=== PATIENT | male | born 1950 | race Caucasian/White ===

== ENCOUNTER → 2021-06-28 09:16 | Outpatient (CLI) | payer MEDICARE, OTHER, SELFPAY ==
[2021-06-28 12:33] LABS: Anion Gap 4 (5-15); BUN 17 mg/dL (7-18); BUN/Creat Ratio 12.6 RATIO (10-20); Calcium,Total 9.1 mg/dL (8.5-10.1); Chloride 108 mmol/L (98-107); Creatinine, Serum 1.35 mg/dL (0.70-1.30); EST Glomerular Filtration Rate 55 mL/min (>60); Est Glom Filt Rate - Afr Amer 67 mL/min (>60); Glucose 214 mg/dL (74-106); Magnesium 2.3 mg/dL (1.6-2.6); Potassium 4.6 mmol/L (3.5-5.1); Sodium Level 139 mmol/L (136-145)
[2021-06-28 13:01] LABS: Cholesterol 128 mg/dL (200); High Density Lipoprotein 55 mg/dL; T4 Free Direct 0.79 ng/dL (0.76-1.46); Thyroid Stim Hormone (TSH) 2.86 uIU/mL (0.358-3.74); Triglycerides 174 mg/dL; Very Low Density Lipoprotein 35 mg/dL (5-40)
== END ==
PROVIDERS: PCP Internal Medicine; Referring Provider Internal Medicine; Visit Provider Internal Medicine
DX: I25.10 Atherosclerotic heart disease of native coronary artery without angina pectoris (principal); I49.9 Cardiac arrhythmia, unspecified; I49.49 Other premature depolarization
CPT/HCPCS: 36415; 80048; 80061; 83735; 84439; 84443

== ENCOUNTER 2021-12-06 10:03 | Outpatient (CLI) | payer MEDICARE, OTHER, SELFPAY | END 2021-12-06 23:59 | disposition home or self-care (01) | LOC: LABSPEC 10:05 | PROVIDERS: PCP Internal Medicine; Referring Provider Nurse Practitioner Family; Visit Provider Nurse Practitioner Family | DX: Z20.822 Contact with and (suspected) exposure to COVID-19 (principal) | CPT/HCPCS: 87635; U0003; U0005 ==

== ENCOUNTER → 2023-10-31 | Outpatient (CLI) | payer MEDICARE, OTHER, SELFPAY ==
--- OUTSIDE RECORDS SUMMARY | 2023-10-31 08:40 | XMS RPT_ITS | CCD ---
Author Name Unknown Address [address] [place] [address] Organization [facility] Care Team Providers Care Roving Tester Laboratory Name Role Phone NACHO MCCOLLUM Unavailable Unavailable NACHO HOBBS Unavailable Unavailable NACHO HOBBS Unavailable Unavailable Results Test Name Value Interpretation Reference Range Facil ity Encounters Encounter Date Encounter Type Care Provider Facility Start: 05-15-2017 End: 05-16-2017 Ambulatory NACHO MCCOLLUM Facility:B Payers Date Payer Category Payer Unknown [id number] Summary Purpose Family History No Family History Records Found Advance Directives No Advanced Directives Records Found Additional Source Comments (unrecognized sect ion and content) No Status Records Found INFORMATION SOURCE (unrecogn ized section and content) FOR RECORDS PERTAINING TO PATIENTS WHO ARE OR HAVE BEEN ENROLLED IN A CHEMICAL DEPENDENCY/SUBSTANCEABUSE PROGRAM, SOME INFORMATION MAY BE OMITTED. This clinical summary was aggregated from multiple sources. Caution should be exercised in using it in the provision of clinical care. This summary normalizes information from multiple sources, and as a consequence, information in this document may materially change the coding, format and clinical context of patient data. In addition, data may be omitted in some cases. CLINICAL DECISIONS SHOULD BE BASED ON THE PRIMARY CLINICAL RECORDS. [facility]. provides no warranty or guarantee of the accuracy or completeness of information in this document.
== END | disposition home or self-care (01) ==
LOC: LABSPEC 08:20
PROVIDERS: PCP Internal Medicine; Referring Provider Family Medicine; Visit Provider Family Medicine
DX: R09.81 Nasal congestion (principal); B97.4 Respiratory syncytial virus as the cause of diseases classified elsewhere
CPT/HCPCS: 87631

== ENCOUNTER → 2024-09-23 | Outpatient (CLI) | payer MEDICARE, OTHER, SELFPAY | END | disposition home or self-care (01) | LOC: LABSPEC 09:01 | PROVIDERS: PCP Internal Medicine; Referring Provider Family Medicine; Visit Provider Family Medicine | DX: R05.9 Cough, unspecified (principal) | CPT/HCPCS: 87631 ==

== ENCOUNTER → 2025-03-30 | Outpatient (CLI) | payer MEDICARE, OTHER, SELFPAY ==
--- NOTE | 2025-03-30 12:30 | LES_PTH ---
PATIENT: WILFREDO DUTTON LOC: ANN U#:[id number] AGE/SX: 74/M ROOM: RE03/30/[address]: LANETTE Cam : 1950 BED: DIS: 03/30/2025 SPEC #: [id number] RECD: 03/30/25 15:00 STATUS: GIOVANA NOAH #: [id number] RAMON: 03/30/25 12:[address]: Seven Azevedo DEPT: SURGICAL PATHOLOGY RECD BY: Kodak Martin ENTERED: 03/31/25 08:45 SP TYPE: Lesion OTHR DR: Dr. Yoandy Marshall MD Tissues: A - Skin of face, NOS Procedures: Surgery Specimen Level IV HEADER OPERATION: Shave biopsy PRE-OP DIAGNOSIS: Suspicious skin lesion / neoplasm of uncertain behavior TISSUE SUBMITTED: A- Right samaritan lesion MICROSCOPIC DIAGNOSIS Skin, right samaritan, excision: * Seborrheic keratosis MICROSCOPIC DESCRIPTION Slides are reviewed. GROSS DESCRIPTION A. Received in formalin labeled with the patient's name and date of . Designated as R suspicious temporal lesion is a 0.7 x 0.7 x <0.1 cm cooley skin shave devoid of orientation. The resection margin is inked blue. There is a central, 0.4 x 0.3 cm red-brown scab located 0.2 cm from the peripheral edge. Trisected and entirely submitted in 1 cassette. Specimen fragmented upon sectioning. [facility] 03/31/2025 CPT:39059
--- OUTSIDE RECORDS SUMMARY | 2025-03-31 00:03 | XMS RPT_ITS | CCD ---
Author Organization [facility] Care Team Providers Care Reference Assistant Name Role Phone NACHO MCCLOLUM Unavailable Unavailable NACHO HOBBS Unavailable Unavailable NACHO HOBBS Unavailable Unavailable Dr. Yoandy Marshall Primary Care Provider [phone] Dr. Yoandy Marshall Attending Provider [phone] Dr. Yoandy Marshall Referring Provider [phone] Yoandy Marshall Primary Care Unavailable Wilfredo Bettencourt Referring Unavailable Wilfredo Bettencourt Attending Unavailable Joanna GUILLEN, Dr. Pitt Primary Care Provider Dr. Yoandy Marshall MD Referring Provider [phone] Seven Alicia Attending Provider [phone] Medications Current Medications Medication Drug Class(es) Dates Sig (Normalized) Sig (Original) amoxicillin 500 mg oral capsule (3 sources) Penicillin-class Antibacterial Start: 11-02-2023 End: 10-29-2024 take 1 capsule by mouth three times daily Amoxicillin 500 mg capsule Active 500 mg PO THREE TIMES A DAY October 29, 2024 9:03am benzonatate 200 mg oral capsule (2 sources) Non-narcotic Antitussive Start: 04-25-2022 take 1 capsule by mouth three times daily Benzonatate 200 mg capsule Active 200 mg PO THREE TIMES A DAY April 25, 2022 12:00am Nirmatrelvir-Riton avir (4 sources) Start: 06-14-2023 Nirmatrelvir-Riton avir (Paxlovid) 300 mg (150 mg x 2)-100 mg tablets,dose pack Active 0 PO .COMPLEX June 14, 2023 8:47am take TWO 150 mg tablets of nirmatrelvir with ONE 100 mg tablet of ritonavir twice daily for 5 days PO Start: 06-14-2023 Nirmatrelvir-R itonavir (Paxlovid) 300 mg (150 mg x 2)-100 mg tablets,dose pack Active 0 PO .COMPLEX June 14, 2023 7:47am take TWO 150 mg tablets of nirmatrelvir with ONE 100 mg tablet of ritonavir twice daily for 5 days PO Start: 04-25-2022 End: 06-14-2023 Nirmatrelvir-Ritonavir (Paxl ovid (Eua)) 300 mg (150 mg x 2)-100 mg tablet Discontinued 0 PO .COMPLEX April 25, 2022 12:00am June 14, 2023 8:47am take TWO 150 mg tablets of nirmatrelvir with ONE 100 mg tablet of ritonavir twice daily for 5 days PO Start: 04-25-2022 End: 06-14-2023 Nirmatrelvir-Ritonavir (Paxl ovid (Eua)) 300 mg (150 mg x 2)-100 mg tablet Discontinued 0 PO .COMPLEX April 24, 2022 11:00pm June 14, 2023 7:47am take TWO 150 mg tablets of nirmatrelvir with ONE 100 mg tablet of ritonavir twice daily for 5 days PO Completed/Discontinued Medications Medication Drug Class(es) Dates Sig (Normalized) Sig (Original) polymyxin b 50981 unt/ml / trimethoprim 1 mg/ml ophthalmic solution (2 sources) Dihydrofolate Reductase Inhibitor Antibacterial, Polymyxin-class Antibacterial Start: 11-02-2023 End: 11-09-2023 Polymyxin B Sulf-Trimethoprim 10,000 unit- 1 mg/mL drops Discontinued 1 NMA OPHTHALMIC Q3H 10 7 November 02, 2023 1:00am November 08, 2023 1:00am November 09, 2023 1:28am while awake; do not exceed 6 doses in 24 hours Problems Problem Classification Problem Date Documented Da te Episodic/Chronic Cardiac dysrhythmias (4 sources) Multiple premature ventricular complexes; Translations: [Ventricular premature depolarization] 06-28-2021 Chronic Coronary atherosclerosis and other heart disease (2 sources) Coronary atherosclerosis; Translations: [Atherosclerotic heart disease of [place] coronary artery without angina pectoris] 06-28-2021 Chronic Immunizations and screening for infectious disease (3 sources) Needs influenza immunization; Translations: [Encounter for immunization] 09-19-2023 Episodic Unclassified (1 source) Cough, unspecified; Translations: [Cough, unspecified] Onset: 10-26-2024 Results Test Name Value Interpretation Reference Range Facility M100.678on 09-23-2024 M100.678 Pending SARS-CoV-2 (COVID 19) Negative INFLUENZA A Negative INFLUENZA B Negative RSV PCR Negative Normal [facility] [place] Comment on above: Performed By: #### M 100.678 #### [facility] [place] [facility] [address] [place], [address] Laboratory - Microbiology an d Antimicrobial susceptibilityOrdered By: Wilfredo Bettencourt on 10-31-2023 SARS-CoV-2 (COVID-19) RNA TERESA+probe Ql (Unsp spec) RSV [facility] [place] .Auto Diffon 05-15-2017 Basophils Auto #/vol (Bld) 0.00 10 3/mcL Normal 0.00-0 .19 [facility] ([place]) Comment on above: Performed By: #### C FATIMAH, ARIANE, ANEU, CMP, GFR ####[place] [address]#### TESTO ####[place] [address] [place] [address] Basophils/100 WBC Auto (Bld) 0.6 % Normal 0.0-2.5 [facility] ([place]) Comment on above: Performed By: #### C FATIMAH, DOMENICO THAKKAR, CMP, GFR ####[address] [place] [address]#### TESTO ####[facility] [place] [address] Eosinophils 0.20 10 3/mcL Normal 0.00-0.40 [facility] ([place]) Comment on above: Performed By: #### C BC, ARIANE, DOMENICO, CMP, GFR ####[address] [place], [place] [address]#### TESTO ####[facility] [place] [address] Eosinophils/100 leukocytes 2.3 % Normal 0.0-7.0 [facility] ([place]) Comment on above: Performed By: #### C BC, ADIFF, ANEU, CMP, GFR ####[place] [address]#### TESTO ####[address] [address] Lymphocytes 3.00 10 3/mcL Normal 0.77-3.85 [facility] ([place]) Comment on above: Performed By: #### C BC, ADIFF, ANEU, CMP, GFR ####[place] [address]#### TESTO ####[address] [address] Lymphocytes/100 leukocytes 38.0 % Normal 10.0-50.0 [facility] ([place]) Comment on above: Performed By: #### C BC, ADIFF, ANEU, CMP, GFR ####[place] [address]#### TESTO ####[address] [address] Monocytes 0.70 10 3/mcL Normal 0.15-1.00 [facility] ([place]) Comment on above: Performed By: #### C BC, ADIFF, ANEU, CMP, GFR ####[place] [address]#### TESTO ####[address] [address] Monocytes/100 leukocytes 8.5 % Normal 1.7-13.0 [facility] ([place]) Comment on above: Performed By: #### C BC, ADIFF, ANEU, CMP, GFR ####[place] [address]#### TESTO ####[address] [address] Neutrophils/100 WBC Auto (Bld) 50.6 % Normal 37.0-80.0 [facility] ([place]) Comment on above: Performed By: #### C BC, ADIFF, ANEU, CMP, GFR ####[facility] [place] [address]#### TESTO ####[address] [address] .NEUABSon 05-15-2017 Neutrophils 4.10 10 3/mcL Normal 2.85-6.16 [facility] ([place]) Comment on above: Performed By: #### C BC, ADIFF, ANEU, CMP, GFR ####[place] [address]#### TESTO ####[place] [address] CBCon 05-15-2017 Erythrocyte distribution width Auto Ratio (RBC) 13.7 % Normal 11.5-14.5 [facility] ([place]) Comment on above: Performed By: #### C BC, ADIFF, ANEU, CMP, GFR ####[place] [address]#### TESTO ####[place] [address] Erythrocytes (RBC) 5.09 10 6/mcL Normal 4.04-6.13 [facility] ([place]) Comment on above: Performed By: #### C BC, ADIFF, ANEU, CMP, GFR ####[facility] [place] [address]#### TESTO ####[place] [address] Hematocrit (HCT) 45.6 % Normal 42.0-52.0 [facility] ([place]) Comment on above: Performed By: #### C BC, ADIFF, ANEU, CMP, GFR ####[facility] [place] [address]#### TESTO ####[place] [address] Hemoglobin mass conc (Bld) 15.4 G/dL Normal 14.0-18.0 [facility] ([place]) Comment on above: Performed By: #### C BC, ADIFF, ANEU, CMP, GFR ####[place] [address]#### TESTO ####[place] [address] MCH 30.2 pg Normal 27.0-31.2 [facility] ([place]) Comment on above: Performed By: #### C BC, ADIFF, ANEU, CMP, GFR ####[place] [address]#### TESTO ####[place] [address] MCHC mass conc (RBC) 33.7 G/dL Normal 31.8-35.4 [facility] ([place]) Comment on above: Performed By: #### C BC, ADIFF, ANEU, CMP, GFR ####[place] [address]#### TESTO ####[place] [address] MCV 89.6 fL Normal 80.0-94.0 [facility] ([place]) Comment on above: Performed By: #### C BC, ADIFF, ANEU, CMP, GFR ####[place] [address]#### TESTO ####[place] [address] Platelet mean volume (PMV) 7.4 fL Normal 7.4-10.4 [facility] ([place]) Comment on above: Performed By: #### C BC, ADIFF, ANEU, CMP, GFR ####[place] [address]#### TESTO ####[place] [address] Platelets 204 10 3/mcL Normal 130-400 [facility] ([place]) Comment on above: Performed By: #### C BC, ADIFF, ANEU, CMP, GFR ####[place] [address]#### TESTO ####[place] [address] WBC (Leukocytes) 8.00 10 3/mcL Normal 4.60-10.80 [facility] ([place]) Comment on above: Performed By: #### C BC, ADIFF, ANEU, CMP, GFR ####[place] [address]#### TESTO ####[place] [address] CMPon 05-15-2017 Alanine aminotransferase (ALT) 29 ZZ Normal 10-35 [facility] ([place]) Comment on above: Performed By: #### C BC, ADIFF, ANEU, CMP, GFR ####[place] [address]#### TESTO ####[place] [address] Albumin 4.4 G/dL Normal 3.4-4.8 [facility] ([place]) Comment on above: Performed By: #### C BC, ADIFF, ANEU, CMP, GFR ####[place] [address]#### TESTO ####[place] [address] Albumin/Globulin Ratio 2.0 {ratio} Normal 1.1-2.5 [facility] ([place]) Comment on above: Performed By: #### C BC, ADIFF, ANEU, CMP, GFR ####[place] [address]#### TESTO ####[place] [address] Alk Phos 80 ZZ Normal 40-135 [facility] ([place]) Comment on above: Performed By: #### C BC, ADIFF, ANEU, CMP, GFR ####[place] [address]#### TESTO ####[place] [address] Aspartate aminotransferase (AST) 21 ZZ Normal 10-40 [facility] ([place]) Comment on above: Performed By: #### C BC, ADIFF, ANEU, CMP, GFR ####[facility] [place] [address]#### TESTO ####[address] [address] Bili Total 1.2 mg/dL High 0.2-1.0 [facility] ([place]) Comment on above: Performed By: #### C BC, ADIFF, ANEU, CMP, GFR ####[place] [address]#### TESTO ####[address] [address] BUN/Creatinine Ratio 17 ratio Normal 7-27 [facility] ([place]) Comment on above: Performed By: #### C BC, ADIFF, ANEU, CMP, GFR ####[place] [address]#### TESTO ####[place] [address] Calcium 9.3 mg/dL Normal 8.4-10.2 [facility] ([place]) Comment on above: Performed By: #### C BC, ADIFF, ANEU, CMP, GFR ####[place] [address]#### TESTO ####[address] [address] Chloride 105 mmol/L Normal 98-107 [facility] ([place]) Comment on above: Performed By: #### C BC, ADIFF, ANEU, CMP, GFR ####[place] [address]#### TESTO ####[address] [address] CO2 24 mmol/L Normal 23-31 [facility] ([place]) Comment on above: Performed By: #### C BC, ADIFF, ANEU, CMP, GFR ####[place] [address]#### TESTO ####[place] [address] Creatinine 1.3 mg/dL High 0.6-1.2 [facility] ([place]) Comment on above: Performed By: #### C BC, ADIFF, ANEU, CMP, GFR ####[place] [address]#### TESTO ####[address] [address] Electrolyte Balance 9.0 mEq/L Normal [facility] ([place]) Comment on above: Performed By: #### C BC, ADIFF, ANEU, CMP, GFR ####[place] [address]#### TESTO ####[place] [address] Globulin 2.2 G/dL Normal [facility] ([place]) Comment on above: Performed By: #### C BC, ADIFF, ANEU, CMP, GFR ####[place] [address]#### TESTO ####[place] [address] Glucose mass conc 120 mg/dL High 80-115 [facility] ([place]) Comment on above: Performed By: #### C BC, ADIFF, ANEU, CMP, GFR ####[place] [address]#### TESTO ####[place] [address] Potassium molar conc 4.1 mmol/L Normal 3.5-5.1 [facility] ([place]) Comment on above: Performed By: #### C BC, ADIFF, ANEU, CMP, GFR ####[place] [address]#### TESTO ####[place] [address] Protein 6.6 G/dL Normal 6.0-8.3 [facility] ([place]) Comment on above: Performed By: #### C BC, ADIFF, ANEU, CMP, GFR ####[place] [address] [place] [address]#### TESTO ####[place] [address] [place] [address] Sodium 138 mmol/L Normal 136-146 [facility] ([place]) Comment on above: Performed By: #### C BC, ADIFF, ANEU, CMP, GFR ####[address] [place], [place] [address]#### TESTO ####[place] [address] [place] [address] Urea nitrogen 22.7 mg/dL High 7.0-18.0 [facility] ([place]) Comment on above: Performed By: #### C BC, ADIFF, ANEU, CMP, GFR ####[address] [place], [place] [address]#### TESTO ####[address] [address] GFRon 05-15-2017 eGFR (non-black) 55 ml/min/1.73sqm Normal [facility] ([place]) Comment on above: Result Comment: GFR Population mean for , Non- Americans Ages 20-29 = 116 mL/min/1.73 sq.m. Ages 30-39 = 107 mL/min/1.73 sq.m. Ages 40-49 = 99 mL/min/1.73 sq.m. Ages 50-59 = 93 mL/min/1.73 sq.m. Ages 60-69 = 85 mL/min/1.73 sq.m. Ages 70+ = 75 mL/min/1.73 sq.m.Chronic Kidney Disease: Less than 60 mL/min/1.73 square metersEnd Stage Renal Disease: Less than 15 mL/min/1.73 square meters Performed By: #### C BC, ADIFF, ANEU, CMP, GFR ####[address] [place], [place] [address]#### TESTO ####[address] [address] eGFR (non-black) 67 ml/min/1.73sqm Normal [facility] ([place]) Comment on above: Result Comment: GFR Population mean for , Non- Americans Ages 20-29 = 116 mL/min/1.73 sq.m. Ages 30-39 = 107 mL/min/1.73 sq.m. Ages 40-49 = 99 mL/min/1.73 sq.m. Ages 50-59 = 93 mL/min/1.73 sq.m. Ages 60-69 = 85 mL/min/1.73 sq.m. Ages 70+ = 75 mL/min/1.73 sq.m.Chronic Kidney Disease: Less than 60 mL/min/1.73 square metersEnd Stage Renal Disease: Less than 15 mL/min/1.73 square meters Performed By: #### C BC, ADIFF, ANEU, CMP, GFR ####[address] [place], [place] [address]#### TESTO ####[facility] [place] [address] TESTOon 05-15-2017 Testosterone Lvl 326.0 ng/dL Normal 241.0-827.0 [facility] ([place]) Comment on above: Performed By: #### C BC, ADIFF, ANEU, CMP, GFR ####[place] [address] [place], [place] [address]#### TESTO ####[facility] [place] [address] Encounters Encounter Date Encounter Type Care Provider Facility Start: 03-30-2025 End: 03-30-[address] Yoandy Marshall MD Work Phone: [facility] Work Phone: Start: 03-30-2025 End: 03-30-2025 Patient encounter procedure [facility] Work Phone: Start: 09-23-2024 End: 09-23-2024 ambulatory Yoandy Marshall Facility:[facility] [place] Start: 10-31-2023 End: 10-31-[address] Yoandy Marshall Work Phone: [facility] [place] Work Phone: Start: 10-31-2023 End: 10-31-[address] Yoandy Marshall Work Phone: [facility] [place] Specimen Work Phone: Start: 09-19-2023 End: 09-19-[address] Yoandy Marshall Work Phone: [facility] Work Phone: Start: 05-15-2017 End: 05-16-2017 [facility] Facility[facility] Procedures Date Procedure Procedure Detail Performing Clinician Start: 10-31-2023 SARS-CoV-2, Influenz a & RSV (PCR) Dr. Yoandy Marshall Work Phone: History of placement of stent for coronary artery disease History of coronary artery stent placement Dr. Yoandy Marshall Work Phone: Comment on above: PCI-RCA Immunizations Immunization Date Immunization Notes Care Provider [facility] 09-19-2023 influenza, injectabl e, quadrivalent, preservative free Dr. Yoandy Marshall Work Phone: [facility] [place] 04-21-2022 Covid (Moderna) Dr. Yazmin Marshall Work Phone: [facility] [place] 09-01-2021 Covid (Moderna) Dr. Yazmin Marshall Work Phone: [facility] [place] 06-14-2021 influenza, injectabl e, quadrivalent, preservative free Dr. Yoandy Marshall Work Phone: [facility] [place] 06-14-2021 influenza, injectable,quadrivalent , preservative free, pediatric Dr. Yoandy Marshall Work Phone: [facility] [place] 11-16-2020 Covid (Moderna) Dr. Yazmin Marshall Work Phone: [facility] [place] 10-19-2020 Covid (Moderna) Dr. Yazmin Marshall Work Phone: [facility] [place] 09-10-2019 influenza, injectabl e, quadrivalent, preservative free Dr. Yoandy Marshall Work Phone: [facility] [place] 08-02-2017 hepatitis A vaccine, pediatric/adolescent dosage, [address] Yoandy Marshall Work Phone: [facility] [place] 08-12-2009 novel [id number], preservative-free, injectable Dr. Yoandy Marshall Work Phone: [facility] [place] Payers Date Payer Category Payer Medicare [id number] 2024 Self-pay [id number] 2024 Unknown [id number] 2017 Unknown [id number] 2007 Unknown [employer]MO[employer] [id number] Unknown [id number] Social History Date Type Detail Facility Tobacco smoking stat [facility] Unknown if ever smoked [facility] [place] Work Phone: Start: 1950 [facility]igned At Male [facility] Work Phone: Evaluation note Note Date & Type Note Facility Evaluation note Diagnosis Onset Date Flu vaccine need acute [facility] [place] Work Phone: Evaluation note Note Date & Type Note Facility Evaluation note No assessment information availa ble [facility] Work Phone: Reason for referral (narrative) Note Date & Type Note Facility Reason for referral (narrative) No reason for referral information available [facility] Work Phone: Summary Purpose Family History No Family History Records FoundNo Family History Records Found Advance Directives No Advanced Directives Records FoundNo Advanced Directives Records Found Chief Complaint and Reason for Visit Chief Complaint Flu shot Reason for Visit Flu vaccine need Chief Complaint Admit Date lesion removal/shave March 30, 2025 1:0 1pm Additional Source Comments (unrecognized sect ion and content) No Status Records FoundNo Status Records Found INFORMATION SOURCE (unrecogn ized section and content) DATE CREATED AUTHOR 04/15/2018 [facility] ([place]) DATE CREATED AUTHOR AUTHOR'S ORGANIZ ATION 11/01/2024 [facility] Care Teams (unrecognized sec tion and content) Team Status: Active Member Role Status Dates Dr. Yoandy Marshall MD Primary Care Provider Active Team Status: Inactive Member Role Status Dates Dr. Yoandy Marshall MD Primary Care Jesus Manuel roger, Attending Provider, Referring Provider Active Team Status: Inactive Member Role Status Dates Dr. Yoandy Marshall MD Primary Care Provider Active Dr. iWlfredo Bettencourt DO Attending Provider, Referring Provider Active Team Status: Inactive Member Role Status Dates Dr. Yoandy Marshall MD Primary Care Provider Active Start: March 30, 2025 End: March 30, 2025 Dr. Yoandy Marshall MD Referring Provider Active Start: March 30, 2025 End: March 30, 2025 LANETTE Coates Attending Provider Active St art: March 30, 2025 End: March 30, 2025 Goals (unrecognized section and content) Goals may be documented in a n alternate sectionGoals may be documented in an alternate section FOR RECORDS PERTAINING TO PATIENTS WHO ARE [...] BE BASED ON THE PRIMARY CLINICAL RECORDS. [employer] [facility]. provides no warranty or guarantee of the accuracy or completeness of information in this document.
== END | disposition home or self-care (01) ==
LOC: LABSPEC 15:27
PROVIDERS: PCP Internal Medicine; Referring Provider Physician Assistant; Visit Provider Physician Assistant
DX: D48.9 Neoplasm of uncertain behavior, unspecified (principal)
CPT/HCPCS: 88305